=== PATIENT | female | born 1965 | race Caucasian/White ===

== ENCOUNTER 2018-05-29 11:06 | Outpatient (CLI) | payer OTHER ==
--- NOTE | 2018-05-29 16:11 | Ultrasound Report ---
Reason: POSTMENOPAUSAL, OBESITY Procedure Date: 05/29/2018 Accession Number: [id number] / [id number] Procedure: US - Pelvic w/Transvaginal CPT Code: FULL RESULT: EXAM: PELVIC ULTRASOUND EXAM DATE: 05/29/2018 12:00 PM. CLINICAL HISTORY: POSTMENOPAUSAL, OBESITY. COMPARISON: None. TECHNIQUE: Realtime transabdominal pelvic scan performed to identify the uterus and adnexa and as an overview of other pelvic structures, followed by transvaginal scan to provide greater detail of the uterus and adnexa, with static image documentation. FINDINGS: Uterus: 9 x 4 x 5 cm. Anteverted position. Normal overall size and echotexture. Masses: None. Endometrium: 6 mm. Borderline Cervix: Unremarkable. The ovaries are not visualized. Free Fluid: None. IMPRESSION: 6 mm endometrial complex, borderline thickened for a postmenopausal woman. Strongly consider INTELLIGENCE MANAGER consultation. [facility]
== END 2018-05-29 11:07 | disposition home or self-care (01) ==
LOC: DI 11:06
PROVIDERS: ATTEND Family Medicine
DX: N95.0 Postmenopausal bleeding (principal); E66.9 Obesity, unspecified
CPT/HCPCS: 76830; 76856

== ENCOUNTER 2020-10-27 08:00 | Outpatient (CLI) | payer BC, OTHER ==
[2020-10-27 12:52] LABS: H. PYLORIS ANTIGEN STL NEGATIVE (Negative)
== END 2020-10-27 23:59 | disposition home or self-care (01) ==
LOC: LAB.R 08:00
PROVIDERS: ATTEND Family Medicine
DX: K21.9 Gastro-esophageal reflux disease without esophagitis (principal)
CPT/HCPCS: 87338

== ENCOUNTER 2023-03-03 10:39 | Outpatient (CLI) | payer BC ==
--- NOTE | 2023-03-03 19:16 | XRAY Report ---
PROCEDURE: Wrist 4 View RT INDICATIONS: WRIST PAIN RIGHT TECHNIQUE: 4 views of the wrist were acquired. COMPARISON: None. FINDINGS: Bones: Ill-defined linear lucency and area of sclerosis involving distal portion of scaphoid is seen concerning for subacute scaphoid fracture. No definite acute fracture or dislocation. Osteoarthritic changes are noted along radial aspect of right wrist most notably at first CMC joint. No evidence of avascular necrosis. No suspicious bony lesions. Soft tissues: No suspicious soft tissue calcifications or masses. IMPRESSION: Subacute appearing distal scaphoid waist fracture. No evidence of avascular necrosis. 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 Reviewed by: Quinn Roland MD on 03/03/2023 7:15 PM PDT Approved by: Quinn Roland MD on 03/03/2023 7:15 PM PDT Station ID: [id number]
== END 2023-03-03 10:40 | disposition home or self-care (01) ==
LOC: LAB.N 10:39 → DI.N 10:40
PROVIDERS: ATTEND Internal Medicine
DX: S62.001A Unspecified fracture of navicular [scaphoid] bone of right wrist, initial encounter for closed fracture (principal); M19.031 Primary osteoarthritis, right wrist

== ENCOUNTER 2023-05-31 18:50 | Outpatient (CLI) | payer BC ==
--- NOTE | 2023-06-01 16:40 | XRAY Report ---
PROCEDURE: Cervical Spine Comp w/Flex/Ext INDICATIONS: OTH SPECIFIC ARTHROPATHIES, NEC, RIGHT KNEE TECHNIQUE: 5 views of the cervical spine were acquired. COMPARISON: None. FINDINGS: Bones: No fractures or dislocations to the C7 level. No suspicious bony lesions. Degenerative disc disease, moderate at C5-C6. Bilateral facet arthropathy, severe at C3-C4 on the left, and moderate at C4-C5, C5-C6 and C6-C7 bilaterally. Oblique views demonstrate no significant foraminal stenosis. Soft tissues: Prevertebral soft tissues are normal in thickness. IMPRESSION: 1. Moderate degenerative disc disease and severe facet arthropathy in cervical spine as described. 2. If clinical symptoms persist or there are radiculopathy symptoms, consider MRI for further evaluat ion. Reviewed by: Gurjit Quarles MD on 06/01/2023 4:39 PM PDT Approved by: Gurjit Quarles MD on 06/01/2023 4:39 PM PDT Station ID: [id number]
--- NOTE | 2023-06-01 16:42 | XRAY Report ---
PROCEDURE: Knee 4 View BILAT INDICATIONS: BILATERAL KNEE PAIN, wt bearing TECHNIQUE: 4 views of each knee(s) were acquired. COMPARISON: None. FINDINGS: Right: No acute fractures or dislocations. Old healed fracture/deformity of the proximal fibula. No suspicious bony lesions. Mild tricompartmental knee joint degeneration. Minimal joint space narrowin g with weightbearing. No knee joint effusion. No suspicious soft tissue calcifications or masses. Left: No fractures or dislocations. No suspicious bony lesions. Mild tricompartmental knee joint deg eneration. Minimal joint space narrowing with thinning. No knee joint effusion. No suspicious soft t issue calcifications or masses. IMPRESSION: 1. Mild degenerative joint disease in knees bilaterally. Reviewed by: Gurjit Quarles MD on 06/01/2023 4:41 PM PDT Approved by: Gurjit Quarles MD on 06/01/2023 4:41 PM PDT Station ID: [id number]
== END 2023-05-31 18:51 | disposition home or self-care (01) ==
LOC: DI 18:50
PROVIDERS: ATTEND Physician Assistant
DX: M17.0 Bilateral primary osteoarthritis of knee (principal); M47.22 Other spondylosis with radiculopathy, cervical region; M50.122 Cervical disc disorder at C5-C6 level with radiculopathy

== ENCOUNTER 2024-05-08 08:00 | Outpatient (CLI) | payer BC ==
[2024-05-08 21:49] LABS: BACTERIAL VAGINOSIS DNA NEGATIVE (NEGATIVE); CANDIDA GLABRATA DNA NEGATIVE (NEGATIVE); CANDIDA GROUP DNA NEGATIVE (NEGATIVE); CANDIDA KRUSEI DNA NEGATIVE (NEGATIVE); TRICHOMONAS VAGINALIS DNA NEGATIVE (NEGATIVE)
== END 2024-05-08 23:59 | disposition home or self-care (01) ==
LOC: LAB.WC 08:00
PROVIDERS: ATTEND Obstetrics & Gynecology
DX: L29.8 Other pruritus (principal)
CPT/HCPCS: 81514; 87661; 87801